=== PATIENT | male | born 1965 | race African-American/Black ===

== ENCOUNTER 2016-02-25 19:54 | Emergency (ER) | payer SELFPAY ==
[~2016-02-25] VITALS: Ht 180.3 cm; Wt 69.0 kg
[~2016-02-25 19:54] MED LIST: ZOFR4TAB3 SL
[2016-02-25 19:56] VITALS: BP 136/85; PULSE 96; RESP 16; TEMP 98.2; O2SAT 98
--- NOTE | 2016-02-25 20:44 | PD ---
HPI . Suicidal ideation Chief Complaint: Suicide Ideation/Attempt Time Seen by Provider: 20:27 Travel History International Travel<30 days: No Contact w/Intl Traveler<30days: No Traveled to known affect area: No History of Present Illness HPI The patient presented ambulatory with the chief complaint suicidal ideation. The patient told me the police brought him in that the nurses report that he came is. He is not under the [place] Act. I was unable to give me any further history. He just laid on the bed seems to be sleeping. The nurse was also unable to get any further history. I don't see any psychiatric history in his records. PFSH Past Medical History Diminished Hearing: No Immunizations Current: Yes Social History Alcohol Use: Yes Tobacco Use: Yes Substance Use: Yes (marijuana, prior history of cocaine) Allergies-Medications (Allergen,Severity, Reaction): Coded Allergies: No Known Allergies (Unverified , 02/25/16) Reported Meds & Prescriptions Reported Meds & Active Scripts Active Zofran ODT (Ondansetron HCl) 4 Mg Tab 4 Mg SL Q6H PRN FOR NAUSEA/VOMITING Review of Systems Skin: Positive Other (abrasion on the palm of left hand.) Psychiatric: Positive: Suicidal Ideations Physical Exam Narrative GENERAL: Patient is lying on the bed apparently resting in no acute distress. SKIN: Warm and dry. Superficial abrasion on the palm of left hand. HEAD: Atraumatic. Normocephalic. EYES: Pupils equal and round. ENT: No nasal bleeding or discharge. Mucous membranes pink and moist. NECK: Trachea midline. CARDIOVASCULAR: Regular rate and rhythm. RESPIRATORY: No accessory muscle use. GASTROINTESTINAL: Abdomen soft, non-tender, nondistended. MUSCULOSKELETAL: No obvious deformities. No edema. NEUROLOGICAL: Awake and alert. No obvious cranial nerve deficits. Motor grossly within normal limits. Normal speech. PSYCHIATRIC: The patient seems to be sleeping. Not answer any questions regarding his mood etc. He does not report a plan is for suicide is concerned. When I asked him this, he just closed his eyes. Data Data Last Documented VS Vital Signs Date Time Temp Pulse Resp B/P Pulse Ox O2 Delivery O2 Flow Rate FiO2 02/25/16 19:56 98.2 96 16 136/85 98 Orders Complete Blood Count With Diff (02/25/16 20:27) Basic Metabolic Panel (Bmp) (1/8/17 20:27) Drug Screen, Random Urine (02/25/16 20:27) Alcohol (Ethanol) (02/25/16 20:27) Psych Screen (02/25/16 20:27) MDM Medical Decision Making Medical Screen Exam Complete: Yes Emergency Medical Condition: Yes Differential Diagnosis Differential diagnosis includes but is not limited to depression with suicidal gesture, suicide attempt, suicidal ideation, attention seeking behavior. Narrative Course Patient presents to triage stating that he is suicidal. The patient has not talked to me or to the nurse caring for him. I have ordered medical screening exam. He can then be evaluated by psychiatry. Diagnosis Primary Impression: Suicidal ideation Condition: Stable Nelda Manuel MD Feb 25, 2016 20:43
[2016-02-25 21:35] LABS: BASOPHIL % 0.6 % (0.0-2.0); EOSINOPHIL % 0.6 % (0.0-4.0); HEMATOCRIT 40.7 % (39.0-51.0); HEMO FLAGS DIFF FINAL; LYMPH % 25.2 % (9.0-44.0); LYMPHOCYTE # 1.6 TH/MM3 (1.0-4.8); MEAN CELL VOLUME 86.2 FL (80.0-100.0); MEAN CORPUSCULAR HEMOGLOBIN 28.8 PG (27.0-34.0); MEAN CORPUSCULAR HGB CONC 33.4 % (32.0-36.0); MONO % 10.9 % (0.0-8.0); NEUT % 62.7 % (16.0-70.0); PLATELET COUNT 244 TH/MM3 (150-450); RED BLOOD COUNT 4.72 MIL/MM3 (4.50-5.90); RED CELL DISTRIBUTION WIDTH 13.8 % (11.6-17.2); WHITE BLOOD COUNT 6.3 TH/MM3 (4.0-11.0)
[2016-02-25 21:57] LABS: BICARBONATE 30.4 MEQ/L (21.0-32.0)
[2016-02-26 04:44] LABS: AMPHETAMINE, URINE NEG (NEG); BARBITURATES, URINE NEG (NEG); COCAINE, URINE POS (NEG)
[2016-02-26 06:49] VITALS: BP 137/82; PULSE 93; RESP 18; TEMP 97.3; O2SAT 96
[2016-02-26] MEDS ORDERED: LORazepam 1 MG TAB PO PRN (08:30)
[2016-02-26] MEDS ORDERED: LORazepam 2 MG TAB PO PRN (08:30)
[2016-02-26] MEDS ORDERED: LORazepam 2 MG/ML VIAL IM PRN ×4 (08:30)
[2016-02-26] MEDS ORDERED: FLUMAZENIL 1 MG/10 ML VIAL IV PUSH PRN (08:30)
--- NOTE | 2016-02-26 08:59 | MB ---
cc: DB CRISOSTOMO MD DATE OF CONSULTATION: 02/26/2016 PHYSICIAN REQUESTING CONSULTATION Emergency Department. REASON FOR CONSULTATION Psychiatric evaluation. HISTORY OF PRESENT ILLNESS Mr. Ingram is a 50-year-old -[place] male with a reported history of bipolar disorder along with substance use issues, who presents on a voluntary basis complaining of suicidal ideation. Of note, the patient's toxicology on presentation here was positive for cocaine and cannabinoids and his alcohol level was elevated in the 200s. Reviewing the electronic medical record, I see no prior psychiatric contact within our system. The patient seen and examined. Case discussed with nurse in the J pod. There has been no evidence of any suicidality or homicidality in the psychiatric emergency room. On my examination this morning, the patient is clinically sober. He is an extremely vague historian and says that he feels "confused". When I asked him to elaborate on this he says he feels "tired and fed up." When I ask him about specific depressive or other psychiatric symptomatology he is fairly noncommittal but certainly does not appear particularly severely depressed or otherwise psychiatrically unwell. He does not describe any current suicidal ideation, intent or plan, although he says he was experiencing some last night while he was intoxicated. No homicidal ideation at this time. Denies current audiovisual hallucinations but may have heard some a month ago. No evident delusional beliefs. The remainder of the psychiatric ROS is negative. PAST PSYCHIATRIC HISTORY The patient reports he was diagnosed with bipolar disorder in 1995. He is not presently on any medications for this nor is he under the care of a psychiatrist. He reports his most recent psychiatric admission was a month ago in [place], [place] and he estimates he has had about five lifetime psychiatric admissions. He says he tried to hang himself in 1999 but otherwise denies any history of self-harm. FAMILY HISTORY The patient denies any family psychiatric history except that his son also has bipolar disorder versus schizophrenia. CHEMICAL DEPENDENCY HISTORY The patient admits to drinking a six-pack of beer a day. He denies any history of blackouts, DTs or seizures. He has also been abusing powder cocaine and cannabis. He smokes a little less than a pack a day. SOCIAL HISTORY The patient is presently homeless. He is but from his of 6 years. He has four children. Denies any history. He has an 11th grade education and works in some capacity at an [employer]. He endorses a history of kidnapping charges and apparently as a consequence has to register as a sex offender, although he emphasizes that there was no sexual conduct in the actual kidnapping itself. He denies any active legal issues. No reported access to guns or firearms. PAST MEDICAL HISTORY The patient denies any medical issues. REVIEW OF SYSTEMS No reported headache, vision or hearing changes, chest pain, shortness of breath, bowel or bladder issues. No other somatic complaints. PHYSICAL EXAMINATION Physical examination was completed in the emergency room by the ER staff and the patient was medically cleared. On my examination today, the patient appears to be in no acute physical distress. No abnormal motor movements noted. No signs of withdrawal noted at this time. Labs and vital signs reviewed. Patient's toxicology was positive for cocaine and cannabinoids and his alcohol level was 211 at around 09:30 yesterday evening. MENTAL STATUS EXAMINATION The patient is in hospital gown. He is somewhat disheveled but appears to be maintaining basic hygiene. He is awake and alert and oriented to person and hospital at least. No abnormal motor movements noted. No signs of withdrawal noted. In particular no hand tremor, no diaphoresis, no mydriasis. Speech is within normal limits for rate, tone and volume. Language and fund of knowledge seem adequate and appropriate for age. Mood is fair to somewhat low and affect is more blunted than anything else. Thought process linear. No loosening of associations. No evident delusions. Denies AVH at this time. No current suicidal or homicidal ideation. Insight and judgment are fair at best. ASSESSMENT/PLAN 1. 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 This is a 50-year-old -[place] male with psychiatric history as detailed above, who presents voluntarily with complaints of suicidal ideation in the setting of substance intoxication. Now that he is clinically sober, he is recanting much of this and presents as a fairly vague historian overall. He does not describe any current suicidal or homicidal ideation. I suspect that the patient's homelessness is weighing heavily on his presentation here. He is requesting inpatient psychiatric services although he struggles to describe what the goal of such services might be except to initiate a medication, and again the symptoms that require active management remain unclear as well. Given the patient's preference after discussion of the various options available to him including but not limited to inpatient psychiatric services, chemical dependency rehabilitation services and outpatient psychiatric or chemical dependency rehabilitation services, I will keep the patient on the [facility] wait list. He remains a voluntary patient as I do not believe that he meets [place] Act criteria at this time. I will provide him with medications for the management of any incipient withdrawal. Should the patient wish instead to pursue outpatient psychiatric services at some later point this morning, I think it would not be unreasonable to make this referral and discharge the patient from the ED as I suspect he is presently at low risk to harm self or others after weighing the acute, chronic, and protective factors. The patient's substance use is his most potent risk factor, but he seems pre-contemplative to changing his pattern of use at this time, unfortunately. Case discussed with RN in the J pod. Thank you very much for this consultation. Db Crisostomo DC/[place] /8:20 AM /8:45 AM ERIKA
[2016-02-26] MEDS: THIAMINE HCL 100 MG TAB PO SCH (09:14)
[2016-02-26] MEDS: FOLIC ACID 1 MG TAB PO SCH (09:14)
[2016-02-26 10:21] VITALS: BP 140/82; PULSE 82; RESP 18; O2SAT 100
[2016-02-26 14:29] VITALS: BP 138/77; PULSE 80; RESP 18; O2SAT 99
[2016-02-26 18:26] VITALS: BP 150/76; PULSE 82; RESP 20; O2SAT 100
[2016-02-26 22:24] VITALS: BP 166/84; PULSE 78; RESP 18; O2SAT 98
[2016-02-27 02:30] VITALS: BP 140/78; PULSE 79; RESP 20; O2SAT 95
[2016-02-27 06:00] VITALS: BP 153/89; PULSE 75; RESP 18; O2SAT 100
[2016-02-27] MEDS: FOLIC ACID 1 MG TAB PO SCH (09:55)
[2016-02-27] MEDS: THIAMINE HCL 100 MG TAB PO SCH (09:55)
[2016-02-27 10:10] VITALS: BP 153/89; PULSE 75; RESP 18; O2SAT 100
== END 2016-02-27 10:51 | disposition home or self-care (01) ==
LOC: NEPA 19:54 → NEPJ 02-27 10:51
DX: R45.851 Suicidal ideations (principal); F19.24 Other psychoactive substance dependence with psychoactive substance-induced mood disorder; F39 Unspecified mood [affective] disorder; Z72.0 Tobacco use; Z59.0 Homelessness
CPT/HCPCS: 80048; 80307; 80320; 85025; 96372; 99285; J2060